=== PATIENT | male | born 1990 | race Caucasian/White ===

== ENCOUNTER 2021-04-12 23:11 | Emergency (ER) | payer BC ==
[~2021-04-12] VITALS: Ht 183 cm; Wt 85.0 kg
--- NOTE | 2021-04-13 00:04 | ED General ---
General Chief Complaint: General Problems/Pain Stated Complaint: ELEVATED HR / SHAKEY Nursing Triage Note: Patient reports being shakey earlier in bed and having palpitations. Reports having something similar and being given xanax for it. States took xanax and is not feeling better Source of Information: Patient Exam Limitations: No Limitations History of Present Illness Date Seen by Provider: Apr 13, 2021 Time Seen by Provider: 00:01 Initial Comments Patient is a 30-year-old male who presents to the emergency department with a chief complaint of feeling very shaky and having palpitations earlier this evening. Patient had a similar episode about 3 weeks ago and went to [facility] [place] where he had an extensive work-up and was scheduled for a Holter monitor which she just completed. He has not gotten the reading back from that yet. He is waiting for a follow-up appointment with his primary care doctor, Dr. Doty. He states he has had no recent illnesses. No fevers chills, cough cough, diarrhea, unintended weight loss. His blood sugar was reported at [facility] at 259 with really high triglyceride levels. Patient states that he took half of a 0.5 mg Xanax tablet and then subsequently took the other half of the tablet and states he is actually feeling better now. No complaints of chest pain or abdominal pain. No complaints of feeling "shaky". All other review of systems reviewed and negative except as stated. Timing/Duration: 1 Hour Severity: Moderate Modifying Factors: improves with Medication Associated Systoms: Other (Palpitations) Allergies and Home Medications Patient Home Medication List Home Medication List Reviewed: Yes Review of Systems Review of Systems Constitutional: see HPI EENTM: no symptoms reported Respiratory: no symptoms reported Cardiovascular: palpitations Gastrointestinal: no symptoms reported Genitourinary: no symptoms reported Musculoskeletal: no symptoms reported Skin: no symptoms reported Psychiatric/Neurological: Anxiety, Tremors All Other Systems Reviewed Negative Unless Noted: Yes Past Jozrhgf-Rjlmus-Ymjhsc Hx Patient Social History Tobacco Use?: No Substance use?: No Pt feels they are or have been: No Physical Exam Vital Signs Vital Signs - First Documented 04/12/21 23:24 Temp 36.4 Pulse 98 Resp 18 B/P (MAP) 160/92 (114) Pulse Ox 98 Capillary Refill : Height, Weight, BMI Height: '" Weight: lbs. oz. kg; 25.00 BMI Method: General Appearance: No Apparent Distress, WD/WN Neck: Normal Inspection Respiratory: Lungs Clear, Normal Breath Sounds, No Accessory Muscle Use, No Respiratory Distress Cardiovascular: Regular Rate, Rhythm Gastrointestinal: Non Tender, Soft Extremity: Normal Capillary Refill, Normal Inspection, Normal Range of Motion Neurologic/Psychiatric: Alert, Oriented x3, No Motor/Sensory Deficits, Normal Mood/Affect Skin: Normal Color, Warm/Dry Progress/Results/Core Measures Suspected Sepsis SIRS Temperature: Pulse: 98 Respiratory Rate: 18 Blood Pressure 160 /92 Mean: 114 Results/Orders Lab Results Laboratory Tests Test 04/13/21 00:17 Range/Units Glucometer 95 70-110 MG/DL My Orders Orders - CHRISTIANO ABDALLA MD Accucheck Stat ONCE (04/13/21 00:04) Vital Signs/I&O 04/12/21 23:24 Temp 36.4 Pulse 98 Resp 18 B/P (MAP) 160/92 (114) Pulse Ox 98 Capillary Refill : Blood Pressure Mean: 114 Departure Impression Primary Impression: Palpitations Disposition: 01 HOME, SELF-CARE Condition: Stable Departure-Patient Inst. Decision time for Depature: 00:13 Referrals: [facility] (PCP/Family) Primary Care Physician Patient Instructions: Palpitations (DC) Add. Discharge Instructions: Drink plenty of fluids to stay well-hydrated. Call your primary care doctor for a follow-up appointment this week. Your blood sugar was 95 this evening, this falls within the normal range. Return to the emergency room for any new, concerning or emergent complaints. CHRISTIANO ABDALLA MD Apr 13, 2021 00:04
[2021-04-13 00:27] VITALS: BP 160/92
== END 2021-04-13 00:28 | disposition home or self-care (01) ==
LOC: EDUNIT# 23:11 → ER 23:14
DX: R00.2 Palpitations (principal)
CPT/HCPCS: 82947

== ENCOUNTER → 2023-02-16 | Outpatient (CLI) | payer BC | LOC: CARD 08:42 | PROVIDERS: ATTEND Family Medicine | DX: R00.2 Palpitations (principal) | CPT/HCPCS: 93225; 93226 ==